=== PATIENT | male | born 1935 | race African-American/Black ===

== ENCOUNTER 2016-12-17 15:25 | Inpatient (IN) | payer OTHER, MEDICARE ==
[~2016-12-17] VITALS: Ht 185.4 cm; Wt 86.5 kg
[~2016-12-17 15:25] MED LIST: ATENOLOL25 MG PO; CALCIUM 500 +1 EACH PO; COUMADIN1 MG; COUMADIN1 MG PO; DAILY VITAMIN1 EAC4 PO; LECITHIN1200 M1 PO; LO-DOSE ASPIRIN81 M1 PO; LUMIGAN 0.50 DROP/2. BOTH EYES; LUPRON DEPOT30 MG; VYTORIN 10/41 TABLET PO
[2016-12-17 17:00] LABS: HEMATOCRIT 36.7 % (38.0-50.0); MCH 28.8 PG (29.0-34.0); MCHC 32.7 G/DL (30.0-36.0); MEAN PLAT.VOLUME 9.5 uM^3 (9.0-12.4); PLATELET COUNT 95 K/uL (156-360); RBC DIS.WIDTH-CV 17.5 % (11.8-14.6); RBC DIS.WIDTH-SD 56.1 % (39-53); RED BLOOD COUNT 4.17 M/uL (4.00-5.50); WHITE BLOOD COUNT 3.9 K/uL (4.1-10.2)
[2016-12-17 17:19] LABS: CHLORIDE 103 mEq/L (99-109); POTASSIUM 3.6 mEq/L (3.7-5.4); SODIUM 134 mEq/L (136-147)
[2016-12-17 17:21] LABS: GLUCOSE 84 mg/dL (70-99)
[2016-12-17 17:22] LABS: ANION GAP 12 MEQ/L (2-14)
[2016-12-17 17:25] LABS: GFR ESTIMATE (CALCULATED) > 59 mL/min/; UREA NITROGEN (BUN) 10 mg/dL (9-23)
[2016-12-17 18:31] LABS: TROP-I INTERPRETATION NEGATIVE; TROPONIN-I 0.02 ng/mL (0.0-0.30)
[2016-12-17 18:41] VITALS: BP 99/60
[2016-12-17] MEDS ORDERED: ENDOCET 5-3251 EACH PO (19:21)
[2016-12-17] MEDS ORDERED: DECADRON2 MG PO ×3 (19:23→19:42)
[2016-12-17] MEDS ORDERED: XGEVA120 MG/1.7 SC (19:34)
[2016-12-17] MEDS ORDERED: TRELSTAR22.5 MG/2 IM (19:35)
[2016-12-17] MEDS ORDERED: LUMIGAN 0.50 DROP/22 BOTH EYES (19:44)
[2016-12-17 19:59] LABS: TOTAL BILIRUBIN 1.1 mg/dL (0.0-1.0)
[2016-12-17 20:00] LABS: ALKALINE PHOSPHATASE 62 IU/L (3-129)
[2016-12-17 20:03] LABS: DIRECT BILIRUBIN 0.4 mg/dL (0.0-0.3)
[2016-12-17 21:01] VITALS: BP 104/62
[2016-12-17 21:33] LABS: INTER. NORMALIZED RATIO 1.8; PROTHROMBIN TIME 19.8 SEC (10.2-12.9)
[2016-12-17 22:49] LABS: CARBON DIOXIDE (BICARBONATE) 23.4 MEQ/L (20-31)
[2016-12-18 02:08] VITALS: BP 129/68
[2016-12-18 02:21] LABS: ADD MIUA? YES; BILIRUBIN NEGATIVE; BLOOD NEGATIVE; COLOR YELLOW ((YELLOW)); GLUCOSE (STRIP) NEGATIVE; KETONES 5; LEUKOCYTES NEGATIVE; NITRITE NEGATIVE; PROTEIN (STRIP) 30; SPECIFIC GRAVITY 1.021 (1.000-1.030); UROBILINOGEN 0.2 MG/DL (0.2-1.0)
[2016-12-18 02:33] LABS: BACTERIA NONE SEEN /HPF; EPITHELIAL CELLS RARE /HPF; MUCUS 3+ /LPF; RED BLOOD CELLS 20-30 /HPF (0-5); UCUL ADDED? NO; WHITE BLOOD CELLS 0-5 /HPF (0-5)
[2016-12-18 07:06] LABS: INTERNAL CONTROL VALID? YES
[2016-12-18 07:21] VITALS: BP 110/62
[2016-12-18 07:24] LABS: PROTHROMBIN TIME 23.1 SEC (10.2-12.9)
[2016-12-18 07:38] LABS: ANION GAP 11 MEQ/L (2-14); CHLORIDE 108 MEQ/L (99-109); GFR ESTIMATE (CALCULATED) > 59 mL/min/; GLUCOSE 94 mg/dL (70-99); POTASSIUM 4.1 MEQ/L (3.7-5.4); SAMPLE HEMOLYSIS CHECK 0; SAMPLE ICTERIC CHECK 0; SAMPLE LIPEMIA CHECK 0; SODIUM 137 MEQ/L (136-147); UREA NITROGEN (BUN) 6 mg/dL (9-23)
[2016-12-18 07:58] LABS: EOSINOPHIL (%) 0 % (0-5); IMMATURE GRANULOCYTE (%) 0.7 % (0.0-0.7); LYMPHOCYTE COUNT 0.2 K/uL (1.0-2.8); MCH 29.9 PG (29.0-34.0); MCHC 33.2 G/DL (30.0-36.0); MCV 89.9 FL (86-99); MONOCYTE (%) 2.3 % (3-12); MONOCYTE COUNT 0.1 K/uL (0-0.8); NEUTROPHIL (%) 92.1 % (45-76); RBC DIS.WIDTH-CV 17.7 % (11.8-14.6); RED BLOOD COUNT 3.45 M/uL (4.00-5.50); WHITE BLOOD COUNT 4.3 K/uL (4.1-10.2)
[2016-12-18 08:38] LABS: ABS NEUTROPHIL COUNT 4.3; ANISOCYTOSIS 1+; BAND NEUTROPHILS 19.3 % (0-8.0); BASOPHILS 0.9 %; EOSINOPHIL ABS CT 0; MACROCYTES 1+; MEAN PLAT.VOLUME 9.9 uM^3 (9.0-12.4); PLAT.SUFFICIENCY DECREASED; PLATELET COUNT 82 K/uL (156-360); POIKILOCYTOSIS 1+; SEG.NEUTROPHILS 79.8 % (46.0-76.0)
[2016-12-18 09:41] LABS: MAGNESIUM 1.6 mg/dl (1.3-2.7)
[2016-12-18 10:52] LABS: IRON 20 MCG/DL (35-150)
[2016-12-18] MEDS ORDERED: DECADRON2 MG PO ×2 (11:59→12:01)
[2016-12-18 12:44] VITALS: BP 123/72
[2016-12-18 16:03] VITALS: BP 114/61
[2016-12-18 19:32] VITALS: BP 121/67
[2016-12-18 19:44] LABS: FERRITIN 635 NG/ML (22-322)
[2016-12-19] VITALS (8 sets, daily range): BP systolic 92–141; BP diastolic 60–79
[2016-12-19 06:52] LABS: HEMATOCRIT 31.5 % (38.0-50.0); MCH 29.9 PG (29.0-34.0); MCHC 33.7 G/DL (30.0-36.0); MCV 88.7 FL (86-99); MEAN PLAT.VOLUME 10.3 uM^3 (9.0-12.4); PLATELET COUNT 97 K/uL (156-360); RBC DIS.WIDTH-CV 17.5 % (11.8-14.6); RBC DIS.WIDTH-SD 57.2 % (39-53); RED BLOOD COUNT 3.55 M/uL (4.00-5.50)
[2016-12-19 06:56] LABS: INTER. NORMALIZED RATIO 2.5; PROTHROMBIN TIME 28.8 SEC (10.2-12.9)
[2016-12-19 07:17] LABS: ALKALINE PHOSPHATASE 51 IU/L (3-129); ANION GAP 6 MEQ/L (2-14); CHLORIDE 111 MEQ/L (99-109); GFR ESTIMATE (CALCULATED) > 59 mL/min/; GLUCOSE 112 mg/dL (70-99); POTASSIUM 3.9 MEQ/L (3.7-5.4); SAMPLE HEMOLYSIS CHECK 0; SAMPLE ICTERIC CHECK 0; SAMPLE LIPEMIA CHECK 0; SODIUM 142 MEQ/L (136-147); TOTAL BILIRUBIN 0.5 MG/DL (0.0-1.0); UREA NITROGEN (BUN) 8 mg/dL (9-23)
[2016-12-19 07:26] LABS: EOSINOPHIL (%) 0 % (0-5); IMMATURE GRANULOCYTE (%) 0.4 % (0.0-0.7); INSTRUMENT ABS NEUTROPHIL CT 4.7 K/uL; LYMPHOCYTE COUNT 0.3 K/uL (1.0-2.8); MONOCYTE (%) 1.2 % (3-12); MONOCYTE COUNT 0.1 K/uL (0-0.8); NEUTROPHIL (%) 93.4 % (45-76); NEUTROPHIL COUNT 4.7 K/uL (1.8-6.4)
[2016-12-19 14:08] LABS: INTERNAL CONTROL VALID? YES
[2016-12-20] VITALS (7 sets, daily range): BP systolic 99–138; BP diastolic 48–69
[2016-12-20 06:03] LABS: HEMATOCRIT 29.6 % (38.0-50.0); MCHC 33.4 G/DL (30.0-36.0); MCV 86.8 FL (86-99); MEAN PLAT.VOLUME 9.8 uM^3 (9.0-12.4); PLATELET COUNT 108 K/uL (156-360); RBC DIS.WIDTH-CV 17.6 % (11.8-14.6); RBC DIS.WIDTH-SD 56.1 % (39-53); RED BLOOD COUNT 3.41 M/uL (4.00-5.50); WHITE BLOOD COUNT 5.8 K/uL (4.1-10.2)
[2016-12-20 06:28] LABS: ANION GAP 8 MEQ/L (2-14); CHLORIDE 110 MEQ/L (99-109); GFR ESTIMATE (CALCULATED) > 59 mL/min/; GLUCOSE 103 mg/dL (70-99); POTASSIUM 3.5 MEQ/L (3.7-5.4); SAMPLE HEMOLYSIS CHECK 0; SAMPLE ICTERIC CHECK 0; SAMPLE LIPEMIA CHECK 0; SODIUM 141 MEQ/L (136-147); UREA NITROGEN (BUN) 12 mg/dL (9-23)
[2016-12-20 06:35] LABS: INTER. NORMALIZED RATIO 3.7
[2016-12-20 06:42] LABS: PROTHROMBIN TIME 43.4 SEC (10.2-12.9)
[2016-12-20 07:44] LABS: EOSINOPHIL (%) 0 % (0-5); IMMATURE GRANULOCYTE (%) 0.9 % (0.0-0.7); IMMATURE GRANULOCYTE COUNT 0.1 K/uL; INSTRUMENT ABS NEUTROPHIL CT 5.4 K/uL; LYMPHOCYTE COUNT 0.2 K/uL (1.0-2.8); MONOCYTE (%) 1.6 % (3-12); MONOCYTE COUNT 0.1 K/uL (0-0.8); NEUTROPHIL COUNT 5.4 K/uL (1.8-6.4)
[2016-12-21 03:06] VITALS: BP 119/64
[2016-12-21 06:05] LABS: HEMATOCRIT 30.3 % (38.0-50.0); MCH 29.2 PG (29.0-34.0); MCV 88.6 FL (86-99); MEAN PLAT.VOLUME 9.9 uM^3 (9.0-12.4); PLATELET COUNT 110 K/uL (156-360); RBC DIS.WIDTH-SD 57.7 % (39-53); RED BLOOD COUNT 3.42 M/uL (4.00-5.50)
[2016-12-21 06:41] LABS: INTER. NORMALIZED RATIO 4.7; PROTHROMBIN TIME 55.4 SEC (10.2-12.9)
[2016-12-21 06:45] LABS: ANION GAP 8 MEQ/L (2-14); CHLORIDE 111 MEQ/L (99-109); GFR ESTIMATE (CALCULATED) > 59 mL/min/; GLUCOSE 94 mg/dL (70-99); POTASSIUM 3.9 MEQ/L (3.7-5.4); SAMPLE HEMOLYSIS CHECK 0; SAMPLE ICTERIC CHECK 0; SAMPLE LIPEMIA CHECK 0; SODIUM 143 MEQ/L (136-147); UREA NITROGEN (BUN) 7 mg/dL (9-23)
[2016-12-21 07:11] LABS: EOSINOPHIL (%) 0.2 % (0-5); IMMATURE GRANULOCYTE (%) 0.7 % (0.0-0.7); INSTRUMENT ABS NEUTROPHIL CT 3.7 K/uL; LYMPHOCYTE COUNT 0.2 K/uL (1.0-2.8); MONOCYTE (%) 1.7 % (3-12); MONOCYTE COUNT 0.1 K/uL (0-0.8); NEUTROPHIL (%) 91.4 % (45-76); NEUTROPHIL COUNT 3.7 K/uL (1.8-6.4)
[2016-12-21 07:25] VITALS: BP 138/78
[2016-12-21 11:00] VITALS: BP 135/63
[2016-12-21 15:14] VITALS: BP 106/69
[2016-12-21 19:41] VITALS: BP 132/66
[2016-12-21 23:41] VITALS: BP 110/66
[2016-12-22 03:46] VITALS: BP 144/84
[2016-12-22 05:58] LABS: HEMATOCRIT 29.6 % (38.0-50.0); MCH 28.6 PG (29.0-34.0); MCHC 32.8 G/DL (30.0-36.0); MCV 87.3 FL (86-99); MEAN PLAT.VOLUME 10.3 uM^3 (9.0-12.4); NRBC (%) 1.9 /100 WBC (0-0); PLATELET COUNT 117 K/uL (156-360); RBC DIS.WIDTH-CV 17.9 % (11.8-14.6); RBC DIS.WIDTH-SD 57.1 % (39-53); RED BLOOD COUNT 3.39 M/uL (4.00-5.50); WHITE BLOOD COUNT 4.2 K/uL (4.1-10.2)
[2016-12-22 07:02] LABS: INTER. NORMALIZED RATIO 2.5; PROTHROMBIN TIME 28.8 SEC (10.2-12.9)
[2016-12-22 07:05] LABS: ANION GAP 9 MEQ/L (2-14); CHLORIDE 109 MEQ/L (99-109); GFR ESTIMATE (CALCULATED) > 59 mL/min/; GLUCOSE 86 mg/dL (70-99); POTASSIUM 4.2 MEQ/L (3.7-5.4); SAMPLE HEMOLYSIS CHECK 0; SAMPLE ICTERIC CHECK 0; SAMPLE LIPEMIA CHECK 0; SODIUM 143 MEQ/L (136-147); UREA NITROGEN (BUN) 9 mg/dL (9-23)
[2016-12-22 07:34] LABS: ABS NEUTROPHIL COUNT 3.9; ANISOCYTOSIS 2+; BAND NEUTROPHILS 4.4 % (0-8.0); EOSINOPHIL ABS CT 0; INSTRUMENT ABS NEUTROPHIL CT 3.8 K/uL; LYMPHOCYTES 6.2 % (15.0-45.0); MACROCYTES 2+; METAMYELOCYTES 0.9 %; NUCLEATED RBC'S 1.8; OVALOCYTES 1+; PLAT.SUFFICIENCY DECREASED; POIKILOCYTOSIS 1+; SEG.NEUTROPHILS 87.6 % (46.0-76.0)
[2016-12-22 08:05] VITALS: BP 115/65
[2016-12-22 12:00] VITALS: BP 121/69
[2016-12-22] MEDS ORDERED: CEFTIN500 MG PO (12:30)
[2016-12-22] MEDS ORDERED: ALBUTEROL2.5 MG/0.5 AEROSOL (12:31)
[2016-12-22] MEDS ORDERED: ENDOCET 5-3251 EACH PO (12:35)
[2016-12-22 16:00] VITALS: BP 113/68
== END 2016-12-22 16:19 | DRG 193 ==
LOC: EME 15:25 → 5SOUTH 18:03 → EDOF 18:03 → ENRESERV 18:11 → 5SOUTH 20:33
PROVIDERS: Emergency Medicine; Hospitalist; Internal Medicine
DX: J18.9 Pneumonia, unspecified organism (principal); A41.9 Sepsis, unspecified organism; R65.20 Severe sepsis without septic shock; C61 Malignant neoplasm of prostate; E46 Unspecified protein-calorie malnutrition; C79.51 Secondary malignant neoplasm of bone; D61.818 Other pancytopenia; J98.01 Acute bronchospasm; E87.6 Hypokalemia; I25.10 Atherosclerotic heart disease of native coronary artery without angina pectoris; C78.00 Secondary malignant neoplasm of unspecified lung; Y84.2 Radiological procedure and radiotherapy as the cause of abnormal reaction of the patient, or of later complication, without mention of misadventure at the time of the procedure; E78.5 Hyperlipidemia, unspecified; I10 Essential (primary) hypertension; E83.51 Hypocalcemia; J98.11 Atelectasis; Z86.711 Personal history of pulmonary embolism; Z86.718 Personal history of other venous thrombosis and embolism; Z79.01 Long term (current) use of anticoagulants; Z92.3 Personal history of irradiation; Z95.1 Presence of aortocoronary bypass graft; Z82.0 Family history of epilepsy and other diseases of the nervous system
CPT/HCPCS: 71010; 80048; 80053; 80076; 81003; 82272; 82607; 82728; 82746; 82803; 83540; 83605; 83735; 83880; 84466; 84484; 85025; 85027; 85610; 87040; 87070; 87205; 87449; 93005; 94640; 94640 76; 94660; 94799; 99202; 99281; 99285; J0456; J0610; J0696; J1956; J7030; J7050; J8540